=== PATIENT | female | born 1990 | race Two or more races ===

== ENCOUNTER 2024-06-07 09:33 | Emergency (ER) | payer BC ==
[~2024-06-07] VITALS: Ht 177.8 cm; Wt 72.6 kg
[2024-06-07 09:51] VITALS: TEMP 98.2; O2SAT 99
[2024-06-07] MEDS: ACETAMINOPHEN 325MG TABLET PO ONE (15:08)
[2024-06-07] MEDS: METOCLOPRAMIDE HCL 10MG/2ML VIAL IV ONE (15:08)
[2024-06-07] MEDS: SODIUM CHLORIDE 0.9% 1,000 ML IV ONE (15:09)
[2024-06-07 17:05] VITALS: BP 108/72; PULSE 97; RESP 16; O2SAT 99
[2024-06-07] MEDS ORDERED: DEXAMETHASONE 4MG/ML 1ML VIAL IM SCH (18:00)
== END 2024-06-07 17:11 | disposition home or self-care (01) ==
LOC: ER 09:33
DX: B34.9 Viral infection, unspecified (principal); R51.9 Headache, unspecified
CPT/HCPCS: 96361; 96374; 99283; J2765; J7030; Z7610 ×2